=== PATIENT | female | born 1955 | race Caucasian/White ===

== ENCOUNTER 2018-12-17 15:24 | Emergency (ER) | payer OTHER ==
[~2018-12-17] VITALS: Ht 154.9 cm; Wt 68.0 kg
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
[2018-12-17 15:54] LABS: BASOPHILS % (AUTO) 0.3 % (0.0-2.0); EOSINOPHILS % (AUTO) 3.3 % (0.0-6.0); HEMATOCRIT 39 % (33-45); HEMOGLOBIN 13.2 g/dL (11.5-14.8); LYMPHOCYTES # (AUTO) 1.3 /CMM (0.8-4.8); LYMPHOCYTES % (AUTO) 14.2 % (20.0-44.0); MEAN CORPUSCULAR HGB CONC 34 g/dl (31.0-36.0); MEAN CORPUSCULAR VOLUME 97 fL (82-100); MONOCYTES # (AUTO) 0.7 /CMM (0.1-1.30); MONOCYTES % (AUTO) 8.1 % (2.0-12.0); NEUTROPHILS # (AUTO) 6.6 /CMM (1.8-8.9); NEUTROPHILS % (AUTO) 74.1 % (43.0-81.0); PLATELET COUNT (AUTO) 212 /CMM (150-450)
[2018-12-17 16:04] LABS: CALCIUM, SERUM 9.8 mg/dL (8.5-10.1); CREATININE 0.8 mg/dL (0.6-1.3); POTASSIUM 3.3 mmol/L (3.5-5.1)
[2018-12-17] MEDS ORDERED: IOHEXOL-300 100 ML VIAL IV ONE (16:05)
[2018-12-17] MEDS ORDERED: CT SWABBABLE VALVE TRANS SET 1 EA INFUS.SET MC ONE (16:05)
[2018-12-17] MEDS ORDERED: IV NS 0.9% 250 ML IV ONE (16:05)
[2018-12-17 16:09] LABS: ALBUMIN 3.5 g/dL (3.4-5.0); BILIRUBIN,DIRECT 0.1 mg/dL (0.0-0.2); BILIRUBIN,TOTAL 0.6 mg/dL (0.2-1.0); TOTAL PROTEIN, SERUM 7.2 g/dL (6.4-8.2)
--- NOTE | 2018-12-17 16:17 | NUR ---
PT TAKEN TO RADIOLOGY VIA [facility]
--- NOTE | 2018-12-17 16:33 | NUR ---
PT RETURNED FROM RADIOLOGY. PRECIOUS WELL. WILL CONT TO MONITOR.
--- NOTE | 2018-12-17 17:04 | NUR ---
PT PROVIDED SHOULDER SLING AND INSTRUCTION. Patient discharged to home in stable condition. Written and verbal after care instructions given. Patient verbalizes understanding of instruction. IV removed. Catheter intact and site benign. Pressure and 4x4 applied to site. No bleeding noted.
[2018-12-17 17:05] VITALS: BP 154/75
== END 2018-12-17 17:06 | disposition home or self-care (01) ==
LOC: EDSEX 15:24 → ER 15:35
DX: S42.032A Displaced fracture of lateral end of left clavicle, initial encounter for closed fracture (principal); D47.3 Essential (hemorrhagic) thrombocythemia; Z88.6 Allergy status to analgesic agent; V49.59XA Passenger injured in collision with other motor vehicles in traffic accident, initial encounter; Y93.89 Activity, other specified; Y92.488 Other paved roadways as the place of occurrence of the external cause; Y99.8 Other external cause status
CPT/HCPCS: 36415; 71045; 73030; 74177; 80048; 80076; 85025; 85730; 86850; 99284; J7050; Q9967